=== PATIENT | male | born 1965 | race Caucasian/White ===

== ENCOUNTER 2025-03-11 16:56 | Inpatient (IN) | payer SELFPAY, OTHER ==
[~2025-03-11 16:56] MED LIST: Iopamidol-370 76% 500 ML MDV (1 ML CHARGE) ONE
[2025-03-11] MEDS ORDERED: niCARdipine 25 MG/10 ML SDV ONE ×2 (17:05→22:06)
[2025-03-11] MEDS ORDERED: Ondansetron PF 4 MG/2 ML Vial IVP PRN (18:42)
[2025-03-11] MEDS ORDERED: Dextrose 50% Abboject 50 ML SYRINGE SLOW IVP PRN (18:42)
[2025-03-11] MEDS ORDERED: Glucagon 1 MG/ML KIT IM PRN (18:42)
[2025-03-12] MEDS ORDERED: niCARdipine 25 MG/10 ML SDV ONE (03:10)
[2025-03-12 04:08] LABS: #Basophils Less than 0.03 10x3/uL (0.0-0.2); #Eosinophils 0.04 10x3/uL (0.0-0.7); #Monocytes 0.65 10x3/uL (0.11-0.59); #Neutrophils 7.61 10x3/uL (1.40-6.50); %Basophils 0.2 % (0.0-1.0); %Eosinophils 0.4 % (0.0-10.0); %Lymphocytes 13.3 % (21.0-51.0); %Monocytes 6.7 % (0.0-10.0); %Neutrophils 79.0 % (42.0-75.0); Hematocrit 42.4 % (42.0-52.0); Hemoglobin 14.9 g/dL (14.0-18.0); Mean Corpuscular Hemoglobin 31.0 pg (27.0-31.0); Mean Corpuscular Volume 88.1 fL (78.0-98.0); Platelet Count 304 10x3/uL (130-400); Red Blood Cell (RBC) Count 4.81 mill/uL (4.70-6.10); White Blood Cell (WBC) Count 9.64 10x3/uL (4.8-10.8)
[2025-03-12 04:33] LABS: ALT (SGPT) 20 U/L (Less than 45); AST (SGOT) 17 U/L (11-34); Albumin 3.7 g/dL (3.1-4.5); Alkaline Phosphatase 75 U/L (40-110); Anion Gap 14 mmol/L (10-20); BUN (Urea Nitrogen) 13 mg/dL (8.4-25.7); Bilirubin, Total 0.5 mg/dL (0.3-1.2); Calc. Creatinine Clearance 212 mL/min (70-130); Calcium 9.2 mg/dL (7.8-10.44); Carbon Dioxide 24 mmol/L (22-29); Cardiac Risk 5.8 (Less than 4.5); Chloride 101 mmol/L (98-107); Cholesterol 269 mg/dl (< 200 Desired); Globulin 3.0 g/dL (2.4-3.5); Glucose 302 mg/dL (70-105); HDL Cholesterol 46 mg/dL (>60 Neg Risk); LDL Cholesterol, Calculated 175 mg/dL; Potassium 4.3 mmol/L (3.5-5.1); Sodium 135 mmol/L (136-145); Triglycerides 239 mg/dL (Less than 150)
[2025-03-12] MEDS: Famotidine/PF 20 mg/2ml Vial SLOW IVP SCH (06:40)
[2025-03-12] MEDS ORDERED: hydrALAZINE 20 MG/ML VIAL SLOW IVP PRN (08:43)
[2025-03-12] MEDS ORDERED: NO ANTITHROMBOTICS FS SCH (08:43)
[2025-03-12] MEDS ORDERED: niCARdipine 25 MG in Sodium Chloride 0.9% 250 ML 250 ML IVPB PRN (08:43)
[2025-03-12] MEDS: Insulin Glargine 30 UNITS/0.3 ML VIAL SC SCH (09:04)
[2025-03-12] MEDS ORDERED: Famotidine/PF 20 mg/2ml Vial ONE (09:05)
[2025-03-13 04:38] LABS: Cardiac Risk 6.8 (Less than 4.5); Cholesterol 253.0 mg/dl (< 200 Desired); HDL Cholesterol 37.0 mg/dL (>60 Neg Risk); LDL Cholesterol, Calculated 151.0 mg/dL; Triglycerides 327.0 mg/dL (Less than 150)
[2025-03-13] MEDS: Insulin Glargine 30 UNITS/0.3 ML VIAL SC SCH (09:04)
[2025-03-13] MEDS: Aspirin 81 mg Enteric Coated Tablet PO SCH (09:39)
[2025-03-13] MEDS: metFORMIN 500 MG TAB PO SCH (18:04)
[2025-03-13] MEDS: Famotidine 20 MG TAB PO SCH (20:14)
[2025-03-14] MEDS: Enoxaparin 40 MG (0.4 mL) SYRINGE SC SCH (08:55)
[2025-03-14] MEDS: Aspirin 81 mg Enteric Coated Tablet PO SCH (08:55)
[2025-03-16] MEDS: Insulin Glargine 30 UNITS/0.3 ML VIAL SC SCH (21:21)
[2025-03-17 04:51] LABS: Anion Gap 13 mmol/L (10-20); BUN (Urea Nitrogen) 14 mg/dL (8.4-25.7); Calc. Creatinine Clearance 195 mL/min (70-130); Calcium 9.1 mg/dL (7.8-10.44); Carbon Dioxide 24 mmol/L (22-29); Chloride 104 mmol/L (98-107); Glucose 134 mg/dL (70-105); Potassium 3.8 mmol/L (3.5-5.1); Sodium 137 mmol/L (136-145)
[2025-03-17] MEDS: Lisinopril 5 MG TAB PO SCH ×2 (12:47→12:49)
[2025-03-18] MEDS: Lisinopril 5 MG TAB PO SCH (10:18)
[2025-03-19] MEDS: glipiZIDE 5 MG TAB PO SCH (12:41)
[2025-03-19] MEDS: metFORMIN 500 MG TAB PO SCH (16:38)
[2025-03-20] MEDS: glipiZIDE 5 MG TAB PO SCH (08:00)
[2025-03-21] MEDS: Lisinopril 10 MG TAB PO SCH (09:17)
[2025-03-22 03:52] LABS: Hematocrit 42.3 % (42.0-52.0); Hemoglobin 14.1 g/dL (14.0-18.0); Mean Corpuscular Hemoglobin 30.3 pg (27.0-31.0); Mean Corpuscular Volume 90.8 fL (78.0-98.0); Platelet Count 339 10x3/uL (130-400); Red Blood Cell (RBC) Count 4.66 mill/uL (4.70-6.10); White Blood Cell (WBC) Count 8.60 10x3/uL (4.8-10.8)
[2025-03-22 04:06] LABS: Anion Gap 12 mmol/L (10-20); BUN (Urea Nitrogen) 13 mg/dL (8.4-25.7); Calc. Creatinine Clearance 211 mL/min (70-130); Calcium 9.5 mg/dL (7.8-10.44); Carbon Dioxide 25 mmol/L (22-29); Chloride 103 mmol/L (98-107); Glucose 118 mg/dL (70-105); Potassium 4.0 mmol/L (3.5-5.1); Sodium 136 mmol/L (136-145)
[2025-03-25] MEDS: Ezetimibe 10 MG TAB PO SCH (10:57)
[2025-03-25] MEDS: Losartan 25 MG TAB PO SCH (10:58)
[2025-03-26] MEDS: Losartan 25 MG TAB PO SCH (09:14)
[2025-03-26] MEDS: Ezetimibe 10 MG TAB PO SCH (09:14)
[2025-03-27 17:31] VITALS: BMI 32.5
[2025-03-28 06:05] VITALS: BMI 33.4
[2025-03-28 12:03] VITALS: BP 134/88
[2025-03-28 12:04] VITALS: TEMP 98.2
== END 2025-03-28 13:34 | DRG 65 ==
LOC: ERS 16:56 → ERHOLD 18:21 → CCU 03-12 09:55 → 2SE 03-12 21:06
PROVIDERS: ADMIT Internal Medicine; ATTEND Internal Medicine
DX: I63.9 Cerebral infarction, unspecified (principal); G81.94 Hemiplegia, unspecified affecting left nondominant side; I10 Essential (primary) hypertension; E11.9 Type 2 diabetes mellitus without complications; R29.714 NIHSS score 14; Z88.5 Allergy status to narcotic agent; R13.10 Dysphagia, unspecified; E78.5 Hyperlipidemia, unspecified; Z60.2 Problems related to living alone; Z92.82 Status post administration of tPA (rtPA) in a different facility within the last 24 hours prior to admission to current facility
CPT/HCPCS: 0439T; 36415; 36416; 70450; 70496; 70498; 70553; 76376; 80048; 80053; 80061; 83036; 85025; 85027; 93306; 96374; 99292; J1308; J1650; J1815; Q9957; Q9967